=== PATIENT | female | born 1980 | race Hispanic/Latino ===

== ENCOUNTER 2016-11-19 15:26 | Inpatient (IN) | payer MEDICARE, OTHER ==
[2016-11-19 15:27] VITALS: BMI 24.9
[2016-11-19] MEDS ORDERED: Albuterol-Ipratrop 3 mg / 0.5 (3 ml) UD ONE ×2 (15:35→20:38)
[2016-11-19 15:52] LABS: BASO # 0.1 K/uL (0.0-0.2); BASO % 0.5 % (0.0-2.0); EOS # 0.4 K/uL (0.0-0.7); EOS % 2.9 % (0.0-4.0); HEMATOCRIT 38.5 % (34.0-47.0); LYMPH # 3.5 K/uL (1.0-4.3); LYMPH % 24.2 % (20.0-40.0); MEAN CELL VOLUME 89.5 fL (81.0-99.0); MEAN CORPUSCULAR HEMOGLOBIN 29.2 pg (27.0-31.0); MEAN CORPUSCULAR HGB CONC 32.6 g/dL (33.0-37.0); MEAN PLATELET VOLUME 7.1 fL (7.2-11.7); MONO # 0.9 K/uL (0.0-0.8); MONO % 6.3 % (0.0-10.0); RED CELL DISTRIBUTION WIDTH 15.1 % (11.5-14.5); WHITE BLOOD COUNT 14.6 K/uL (4.8-10.8)
[2016-11-19] MEDS: Albuterol-Ipratrop 3 mg / 0.5 (3 ml) UD IH SCH ×3 (16:25→16:27)
[2016-11-19 16:55] LABS: CHLORIDE 101 mmol/L (98-107); SODIUM 137 mmol/L (132-148)
[2016-11-19 16:56] LABS: POTASSIUM 3.9 mmol/L (3.6-5.2)
[2016-11-19 16:58] LABS: ALB/GLOB RATIO 1.2 (1.0-2.1); ALKALINE PHOSPHATASE 82 U/L (38-126); AST/SGOT 14 U/L (14-36); BILIRUBIN,TOTAL < 0.1 mg/dL (0.2-1.3); BLOOD UREA NITROGEN 9 mg/dL (7-17); CARBON DIOXIDE 23 mmol/L (22-30); GFR AFRICAN-AMERICAN > 60; GLUCOSE,RANDOM 125 mg/dL (65-105); TOTAL PROTEIN 7.1 g/dL (6.3-8.3)
[2016-11-19 16:59] LABS: ALT/SGPT 18 U/L (9-52); CALCIUM 8.4 mg/dl (8.6-10.4)
--- NOTE | 2016-11-19 18:23 | RAD ---
PROCEDURE: CHEST RADIOGRAPH, 1 VIEW HISTORY: Shortness of breath COMPARISON: 02/14/2013 FINDINGS: LUNGS: Mild venous congestion. Patchy left basilar airspace opacity. Small nodular density in the right midlung may represent vessel on end. Upper lobe granulomatous changes. PLEURA: As above. CARDIOVASCULAR: Normal. OSSEOUS STRUCTURES: No significant abnormalities. VISUALIZED UPPER ABDOMEN: Normal. OTHER FINDINGS: None. IMPRESSION: Mild venous congestion. Patchy left basilar airspace opacity. Small nodular density in the right midlung may represent vessel on end. Upper lobe granulomatous changes.
--- NOTE | 2016-11-19 18:38 | C.PDOC ---
Time Seen by Provider: 11/19/16 15:33 Chief Complaint (Nursing): Respiratory Distress History Per: Patient Onset/Duration Of Symptoms: Days (1) Current Symptoms Are (Timing): Still Present Current Respiratory Medications: See Home Med List Severity: Severe Reports Recently: Hospitalized Additional History Per: Prior Records Past Medical History Reviewed: Historical Data, Nursing Documentation, Vital Signs Vital Signs: Last Vital Signs Temp 98.6 F 11/19/16 17:28 Pulse 84 11/19/16 17:28 Resp 20 11/19/16 17:28 BP 106/56 L 11/19/16 17:28 Pulse Ox 97 11/19/16 17:28 - Medical History PMH: Asthma (HX OF INTUBATIONS), Depression, Seizures - [facility] Procedures DETOXIFICATION SERVICES FOR SUBSTANCE ABUSE TREATMENT (12/03/15) DPT ADMINISTRATION (12/31/13) MANUAL ASSIST DELIV NEC (12/31/13) MEDS MGMT FOR SUBSTANCE ABUSE TREATMENT, ANTABUSE (12/03/15) OTHER SKIN & SUBQ I D (01/07/15) REPAIR OB LACERATION NEC (12/31/13) Family History: States: Unknown Family Hx - Social History Hx Tobacco Use: No (quit) Hx Alcohol Use: Yes Hx Substance Use: No (quit) - Immunization History Hx Tetanus Toxoid Vaccination: Yes Hx Influenza Vaccination: Yes Hx Pneumococcal Vaccination: Yes Review Of Systems Except As Marked, All Systems Reviewed And Found Negative. Constitutional: Negative for: Fever, Weakness Cardiovascular: Negative for: Chest Pain Respiratory: Positive for: Shortness of Breath. Negative for: Cough, Hemoptysis Gastrointestinal: Negative for: Vomiting, Abdominal Pain Musculoskeletal: Negative for: Neck Pain, Back Pain, Leg Pain Skin: Negative for: Rash Neurological: Negative for: Weakness, Numbness, Seizures, Altered Mental Status Physical Exam - Physical Exam Appears: In Acute Distress Skin: Normal Color, Warm, Dry, No Rash Head: Atraumatic, Normacephalic Eye(s): bilateral: PERRL, EOMI Neck: Normal ROM, Supple Cardiovascular: Rhythm Regular Respiratory: Wheezing Gastrointestinal/Abdominal: Soft, No Tenderness Back: No CVA Tenderness Extremity: Normal ROM, No Pedal Edema, No Calf Tenderness Neurological/Psych: Oriented x3, Normal Motor, Normal Sensation ED Course And Treatment - Laboratory Results Result Diagrams: 11/19/16 15:45 11/19/16 16:44 Urine POC: Negative O2 Sat by Pulse Oximetry: 97 Pulse Ox Interpretation: Normal - Radiology CXR: Viewed By Me, Read By Radiologist CXR Interpretation: Yes: Other (Mild venous congestion. Patchy left basilar airspace opacity. Small nodular density in the right midlung may represent vessel on end. Upper lobe granulomatous changes.) Progress Note: Pt is improving on Vapotherm high flow nasal canula. She is no longer in distress, but is still wheezing. Progress - Interventions Interventions:: Observation, Oxygen - Medications Administered Inhaled nebulized: Anticholinergic, Beta-2 agonist Intravenous: Corticosteroid, Other (Mg) - Data Reviewed Data Reviewed: Lab, Diagnostic imaging, Old records - Patient Status Patient status: Mostly improved - Critical Care Citical Care: Excluding Proc Time Critical Care Time: 45 minutes - Continuity of Care Discussed patient case with:: Patient, ED Nurse, PMD Disposition Discussed With Dr.: Alex Prescott Comment: He accepted pt on his service and gave admitting orders to the nurse. He wants to hold off on given antibiotics at this time. Doctor Will See Patient In The: Hospital Counseled Patient/Family Regarding: Studies Performed, Diagnosis - Disposition Disposition: HOSPITALIZED Disposition Time: 18:38 Condition: FAIR - Clinical Impression Clinical Impression: Asthma exacerbation Decision To Admit - Pt Status Changed To: Hospital Disposition Of: Inpatient - Admit Certification Admit to Inpatient:: After my assessment, the patient will require hospitalization for at least two midnights. This is because of the severity of symptoms shown, intensity of services needed, and/or the medical risk in this patient being treated as an outpatient. - InPatient: Physician Admission Certification: I certify that this patient requires 2 or more midnights of care for the following reason:: Pt is high risk as she has had multiple prior intubations. - . Bed Request Type: Regular Admitting Physician: Alex Prescott Patient Diagnosis: Asthma exacerbation
[2016-11-19] MEDS ORDERED: Albuterol-Ipratrop 3 mg / 0.5 (3 ml) UD INH SCH (18:45)
[2016-11-19] MEDS ORDERED: MethylPREDNISolone 40 mg Vial ONE (19:50)
[2016-11-19] MEDS: MethylPREDNISolone 40 mg Vial IVP SCH (19:51)
[2016-11-19] MEDS: Albuterol-Ipratrop 3 mg / 0.5 (3 ml) UD INH SCH (20:55)
[2016-11-20] MEDS ORDERED: MethylPREDNISolone 40 mg Vial ONE ×2 (00:22→05:39)
[2016-11-20] MEDS: MethylPREDNISolone 40 mg Vial IVP SCH ×4 (00:23→18:21)
[2016-11-20] MEDS: Albuterol-Ipratrop 3 mg / 0.5 (3 ml) UD INH SCH ×7 (03:18→19:50)
[2016-11-20] MEDS ORDERED: Albuterol-Ipratrop 3 mg / 0.5 (3 ml) UD ONE ×2 (09:17→12:08)
[2016-11-20] MEDS ORDERED: ROPINIROLE HCL 1 MG PO SCH (10:00)
[2016-11-20] MEDS ORDERED: Patient's Own Control Med PO SCH (10:00)
[2016-11-20] MEDS ORDERED: ROPINIROLE 1 MG PO SCH (10:30)
[2016-11-20] MEDS: ROPINIROLE HCL 1 MG PO SCH ×3 (11:30→18:20)
[2016-11-20 16:46] VITALS: RESP 20
--- NOTE | 2016-11-20 19:46 | CP.PCM.HP ---
History of Present Illness - History of Present Illness History of Present Illness: admitted with sob and wheezing h/o admission @ [facility] for resp. failure and pnuemonia found to have mrsa at that time h/o ARDS IN THE PAST WITH RESIDUAL LUNG SCARRING ASTHMA DRUG ABUSE IN THE PAST Present on Admission - Present on Admission Any Indicators Present on Admission: Yes Review of Systems - Respiratory Respiratory: Dyspnea, Dyspnea on Exertion, Wheezing Past Patient History - Infectious Disease Hx of Infectious Diseases: None, MRSA - Past Medical History & Family History Past Medical History?: No - Past Social History Smoking Status: Current Some Days Smoker Drugs: Cocaine, Opiates - PULMONARY Hx Asthma: Yes (HX OF INTUBATIONS) Hx Pneumonia: Yes Hx Respiratory Aspiration: Yes - NEUROLOGICAL Hx Seizures: Yes - MUSCULOSKELETAL/RHEUMATOLOGICAL Hx Falls: No - PSYCHIATRIC Hx Depression: Yes Hx Substance Use: No (quit) - SURGICAL HISTORY Hx Surgeries: No Hx Herniorrhaphy: Yes Other/Comment: etopic Sx - ANESTHESIA Hx Anesthesia: Yes Hx Anesthesia Reactions: No Hx Malignant Hyperthermia: No Meds Allergies/Adverse Reactions: Allergies Allergy/AdvReac Type Severity Reaction Status Date / Time pseudoephedrine HCl Allergy Verified 11/19/16 15:35 [From [facility]] Physical Exam - Constitutional Appears: Chronically Ill - Head Exam Head Exam: ATRAUMATIC, NORMOCEPHALIC - Eye Exam Eye Exam: Normal appearance - ENT Exam ENT Exam: Mucous Membranes Moist - Neck Exam Neck exam: Positive for: Normal Inspection - Respiratory Exam Respiratory Exam: Decreased Breath Sounds, Prolonged Expiratory Phase, Wheezes - Cardiovascular Exam Cardiovascular Exam: +S1, +S2 - GI/Abdominal Exam GI & Abdominal Exam: Normal Bowel Sounds - Rectal Exam Rectal Exam: Deferred - Extremities Exam Extremities exam: Positive for: normal inspection - Neurological Exam Neurological exam: Alert, Oriented x3 - Psychiatric Exam Psychiatric exam: Normal Affect, Normal Mood - Skin Skin Exam: Intact Results - Vital Signs Recent Vital Signs: Last Vital Signs Temp 97.8 F 11/20/16 16:41 Pulse 60 11/20/16 16:41 Resp 20 11/20/16 16:41 BP 98/57 L 11/20/16 16:41 Pulse Ox 95 11/20/16 16:41 - Labs Result Diagrams: 11/19/16 15:45 11/19/16 16:44 Assessment & Plan (1) Asthma exacerbation Status: Acute (2) Opiate dependence Status: Resolved (3) Anoxic brain damage syndrome Status: Chronic (4) MRSA (methicillin resistant Staphylococcus aureus) carrier Status: Suspected
[2016-11-21] MEDS: MethylPREDNISolone 40 mg Vial IVP SCH ×4 (00:14→18:20)
[2016-11-21] MEDS: Ceftaroline 600 MG in Sodium Chloride 0.9% 100 ML IVPB SCH ×2 (00:14→10:55)
[2016-11-21] MEDS: Albuterol-Ipratrop 3 mg / 0.5 (3 ml) UD INH SCH ×7 (00:29→23:39)
[2016-11-21 08:11] LABS: BASO % 0.3 % (0.0-2.0); HEMATOCRIT 33.4 % (34.0-47.0); LYMPH # 1.4 K/uL (1.0-4.3); LYMPH % 9.1 % (20.0-40.0); MEAN CORPUSCULAR HEMOGLOBIN 28.7 pg (27.0-31.0); MEAN CORPUSCULAR HGB CONC 31.5 g/dL (33.0-37.0); MEAN PLATELET VOLUME 8.2 fL (7.2-11.7); MONO # 0.4 K/uL (0.0-0.8); MONO % 2.4 % (0.0-10.0); RED CELL DISTRIBUTION WIDTH 15.2 % (11.5-14.5); WHITE BLOOD COUNT 15.6 K/uL (4.8-10.8)
[2016-11-21 08:15] LABS: PLATELET COUNT 337 K/uL (130-400)
[2016-11-21 08:31] LABS: CHLORIDE 102 mmol/L (98-107); POTASSIUM 4.7 mmol/L (3.6-5.2); SODIUM 140 mmol/L (132-148)
[2016-11-21 08:33] LABS: BILIRUBIN,TOTAL < 0.1 mg/dL (0.2-1.3); CARBON DIOXIDE 23 mmol/L (22-30); GFR AFRICAN-AMERICAN > 60
[2016-11-21 08:34] LABS: ALB/GLOB RATIO 1.3 (1.0-2.1); ALKALINE PHOSPHATASE 69 U/L (38-126); ALT/SGPT 6 U/L (9-52); AST/SGOT 20 U/L (14-36); BLOOD UREA NITROGEN 16 mg/dL (7-17); CALCIUM 8.5 mg/dl (8.6-10.4); GLUCOSE,RANDOM 127 mg/dL (65-105); TOTAL PROTEIN 6.7 g/dL (6.3-8.3)
[2016-11-21 09:26] LABS: NEUTROPHIL 87 % (50-75); TOTAL CELLS COUNTED 100
[2016-11-21] MEDS: ROPINIROLE HCL 1 MG PO SCH ×3 (10:54→17:22)
--- NOTE | 2016-11-21 11:46 | CT ---
CT chest without IV contrast Indication: Abnormal chest x-ray Technique: Contiguous axial images were obtained through the chest without intravenous contrast enhancement. Sagittal and coronal reconstructions were generated and reviewed. This CT exam was performed using 1 or more of the falling dose reduction techniques: Automated exposure control, adjustment of the MAA and/or kV according to patient size, and/or use of iterative reconstruction technique. Radiation dose (DLP): 180.71 MGy-cm. Comparison: Chest x-ray performed 11/19/16 Findings: Visualized portions of the inferior thyroid gland appear unremarkable. The noncontrast mediastinal and hilar vascular structures appear grossly unremarkable. The heart appears within normal limits of size. Patchy ground-glass pulmonary opacities are noted bilaterally with upper lobe predominance, nonspecific. Right middle lobe atelectasis. No pleural effusion. No pneumothorax. Small hiatal hernia/distal esophageal wall thickening. Limited visualization of the noncontrast upper abdomen appears grossly unremarkable. No acute osseous abnormality is detected. Impression: Nonspecific patchy ground-glass pulmonary opacities bilaterally with upper lobe predominance; infectious or inflammatory etiologies are favored. Recommend clinical correlation and follow-up upon completion of treatment for acute symptoms in order to ensure complete resolution. Right middle lobe streaky atelectasis. Preliminary impression was provided by virtual radiologic. Study has been marked for PA review.
--- NOTE | 2016-11-21 17:04 | CP.PCM.PN ---
Subjective - Date & Time of Evaluation Date of Evaluation: 11/21/16 Time of Evaluation: 17:01 - Subjective Subjective: feels much better, wants to go home Objective - Vital Signs/Intake and Output Vital Signs (last 24 hours): Temp Pulse Resp BP Pulse Ox 98.3 F 58 L 20 112/63 96 11/21/16 16:00 11/21/16 16:00 11/21/16 16:00 11/21/16 16:00 11/21/16 16:00 Intake and Output: 11/21/16 11/21/16 06:59 18:59 Intake Total 350 600 Balance 350 600 - Medications Medications: Current Medications Albuterol/Ipratropium (Duoneb 3 Mg/0.5 Mg (3 Ml) Ud) 3 ml INH RQ4 [facility] Last Admin: 11/21/16 12:26 Dose: Not Given Fluoxetine HCl (Prozac) 20 mg PO DAILY [facility] Last Admin: 11/21/16 10:53 Dose: 20 mg Gabapentin (Neurontin) 400 mg PO TID [facility] Last Admin: 11/21/16 14:16 Dose: 400 mg Home Med (Patient's Own Medication) 1 tab PO TID [facility] Last Admin: 11/21/16 14:20 Dose: 1 tab Ceftaroline Fosamil 600 mg/ (Sodium Chloride) 100 mls @ 100 mls/hr IVPB Q12H [facility] Last Admin: 11/21/16 10:55 Dose: 100 mls/hr Methylprednisolone (Solu-Medrol) 40 mg IVP Q6H [facility] Last Admin: 11/21/16 13:16 Dose: 40 mg Mirtazapine (Remeron) 30 mg PO HS [facility] Last Admin: 11/20/16 21:24 Dose: 30 mg Montelukast Sodium (Singulair) 10 mg PO HS [facility] Last Admin: 11/20/16 21:24 Dose: 10 mg Trazodone HCl (Desyrel) 50 mg PO HS PRN PRN Reason: Insomnia Last Admin: 11/19/16 21:55 Dose: 50 mg - Labs Labs: 11/21/16 07:57 11/21/16 07:57 PT 11.1 SECONDS (9.7-12.2) 11/19/16 15:45 INR 1.0 11/19/16 15:45 APTT 35 SECONDS (21-34) H 11/19/16 15:45 - Constitutional Appears: No Acute Distress - Head Exam Head Exam: ATRAUMATIC, NORMOCEPHALIC - Eye Exam Eye Exam: Normal appearance - ENT Exam ENT Exam: Mucous Membranes Moist - Respiratory Exam Respiratory Exam: Decreased Breath Sounds - Cardiovascular Exam Cardiovascular Exam: +S1, +S2 - GI/Abdominal Exam GI & Abdominal Exam: Normal Bowel Sounds - Rectal Exam Rectal Exam: Deferred - Neurological Exam Neurological Exam: Alert, Awake, Oriented x3 - Psychiatric Exam Psychiatric exam: Normal Affect, Normal Mood - Skin Skin Exam: Intact Assessment and Plan (1) Asthma exacerbation Status: Acute (2) Opiate dependence Status: Resolved (3) Anoxic brain damage syndrome Status: Chronic (4) MRSA (methicillin resistant Staphylococcus aureus) carrier Status: Suspected
--- NOTE | 2016-11-21 20:21 | CP.PCM.CON ---
History of Present Illness - History of Present Illness History of Present Illness: INFECTIOUS DISEASE CONSULTATION SHELTON LEW MD, FACP 3T 366 11/21/2016 CHART REVIEWED PT EXAMINED CASED DISCUSSED WITH PMD DR SAGAR GIVENS hX SOMEWHAT LIMITED FROM PATIENT admitted with sob and wheezing from the ER/ED h/o admission @ [facility] for resp. failure and pnuemonia, recently discharged about 6-8 weeks ago with Respiratoy disfunction. found to have mrsa at that time, exact location to be elucidated h/o ARDS IN THE PAST WITH RESIDUAL LUNG SCARRING ASTHMA DRUG ABUSE IN THE PAST TRAUMA AN INFECTIOUS DISEASE CONSULTATION WAS REQUESTED SECONDARY HER SIGNIFICANTLY COMPLICATED RESPIRATORY MEDICAL HISTORY AND MRSA HISTORY. Review of Systems - Review of Systems Systems not reviewed;Unavailable: Respiratory Distress - Constitutional Constitutional: Fatigue, Malaise. absent: Chills, Fever - EENT Nose/Mouth/Throat: Post Nasal Drip, Dry Mouth, Hoarsness - Cardiovascular Cardiovascular: Dyspnea on Exertion, Lightheadedness, Rapid Heart Rate - Respiratory Respiratory: Dyspnea on Exertion, Wheezing, Chest Congestion, Change in Mucous Color - Gastrointestinal Gastrointestinal: Early Satiety, Excessive Flatus - Musculoskeletal Musculoskeletal: Stiffness - Neurological Neurological: Abnormal Speech, Memory Loss, Weakness - Psychiatric Psychiatric: Anxiety, Confusion, Irritability Past Patient History - Infectious Disease Hx of Infectious Diseases: None, MRSA - Tetanus Immunizations Tetanus Immunization: Unknown - Past Medical History & Family History Past Medical History?: No - Past Social History Smoking Status: Current Some Days Smoker Drugs: Cocaine, Opiates - PULMONARY Hx Respiratory Disorders: Yes Hx Asthma: Yes (HX OF INTUBATIONS) Hx Bronchitis: Yes Hx Pneumonia: Yes Hx Respiratory Aspiration: Yes Hx Respiratory Tract Infection: Yes - NEUROLOGICAL Hx Neurological Disorder: Yes Hx Seizures: Yes Other/Comment: ANOXIC ENCEPHALOPATHY - MUSCULOSKELETAL/RHEUMATOLOGICAL Hx Musculoskeletal Disorders: Yes Hx Falls: No Other/Comment: TRAUMA PREVIOUSLY - PSYCHIATRIC Hx Psychophysiologic Disorder: Yes Hx Anxiety: Yes Hx Depression: Yes Hx Substance Use: No (quit(?)) - SURGICAL HISTORY Hx Surgeries: No Hx Herniorrhaphy: Yes Other/Comment: etopic Sx - ANESTHESIA Hx Anesthesia: Yes Hx Anesthesia Reactions: No Hx Malignant Hyperthermia: No Meds Home Medications: Home Medication List Medication Instructions Recorded Confirmed Type Methylprednisolone [Medrol Dose 4 mg PO 5XD #21 mg 11/21/16 Rx Pack (21 tabs)] Allergies/Adverse Reactions: Allergies Allergy/AdvReac Type Severity Reaction Status Date / Time pseudoephedrine HCl Allergy Verified 11/19/16 15:35 [facility] - Medications Medications: Current Medications Albuterol/Ipratropium (Duoneb 3 Mg/0.5 Mg (3 Ml) Ud) 3 ml INH RQ4 [facility] Last Admin: 11/21/16 19:47 Dose: 3 ml Fluoxetine HCl (Prozac) 20 mg PO DAILY [facility] Last Admin: 11/21/16 10:53 Dose: 20 mg Gabapentin (Neurontin) 400 mg PO TID [facility] Last Admin: 11/21/16 17:19 Dose: 400 mg Home Med (Patient's Own Medication) 1 tab PO TID [facility] Last Admin: 11/21/16 17:22 Dose: 1 tab Ceftaroline Fosamil 600 mg/ (Sodium Chloride) 100 mls @ 100 mls/hr IVPB Q12H [facility] Last Admin: 11/21/16 10:55 Dose: 100 mls/hr Methylprednisolone (Solu-Medrol) 40 mg IVP Q6H [facility] Last Admin: 11/21/16 13:16 Dose: 40 mg Mirtazapine (Remeron) 30 mg PO HS [facility] Last Admin: 11/20/16 21:24 Dose: 30 mg Montelukast Sodium (Singulair) 10 mg PO HS [facility] Last Admin: 11/20/16 21:24 Dose: 10 mg Trazodone HCl (Desyrel) 50 mg PO HS PRN PRN Reason: Insomnia Last Admin: 11/19/16 21:55 Dose: 50 mg Physical Exam - Constitutional Appears: Non-toxic, Older Than Stated Age, Chronically Ill - Head Exam Head Exam: ATRAUMATIC - Eye Exam Eye Exam: Normal appearance - ENT Exam ENT Exam: Mucous Membranes Moist - Neck Exam Neck exam: Positive for: Normal Inspection - Respiratory Exam Respiratory Exam: Decreased Breath Sounds, NORMAL BREATHING PATTERN. absent: Wheezes - Cardiovascular Exam Cardiovascular Exam: REGULAR RHYTHM - GI/Abdominal Exam GI & Abdominal Exam: Diminished Bowel Sounds, Normal Bowel Sounds, Soft. absent : Tenderness - Rectal Exam Rectal Exam: Deferred - Neurological Exam Neurological exam: Alert - Psychiatric Exam Psychiatric exam: Anxious, Flat Affect - Skin Skin Exam: Warm Results - Vital Signs Recent Vital Signs: Last Vital Signs Temp 98.3 F 11/21/16 16:00 Pulse 58 L 11/21/16 16:00 Resp 20 11/21/16 16:00 BP 112/63 11/21/16 16:00 Pulse Ox 96 11/21/16 16:00 - Labs Result Diagrams: 11/21/16 07:57 11/21/16 07:57 Labs: Laboratory Results - last 24 hr 11/21/16 07:57 WBC 15.6 H RBC 3.67 L Hgb 10.5 L D Hct 33.4 L MCV 91.0 MCH 28.7 MCHC 31.5 L RDW 15.2 H Plt Count 337 D MPV 8.2 Neut % (Auto) 88.2 H Lymph % (Auto) 9.1 L Upson % (Auto) 2.4 Eos % (Auto) 0.0 Baso % (Auto) 0.3 Neut # 13.7 H Lymph # 1.4 Upson # 0.4 Eos # 0.0 Baso # 0.0 Neutrophils % (Manual) 87 H Band Neutrophils % 2 Lymphocytes % (Manual) 8 L Monocytes % (Manual) 3 Platelet Estimate Normal Hypochromasia (manual) Slight Poikilocytosis (manual Slight Anisocytosis (manual) Slight Ovalocytes Slight Sodium 140 Potassium 4.7 Chloride 102 Carbon Dioxide 23 Anion Gap 19 BUN 16 Creatinine 0.5 L Est GFR ( Amer) > 60 Est GFR (Non-Af Amer) > 60 Random Glucose 127 H Calcium 8.5 L Total Bilirubin < 0.1 L AST 20 ALT 6 L D Alkaline Phosphatase 69 Total Protein 6.7 Albumin 3.8 Globulin 2.9 Albumin/Globulin Ratio 1.3 Assessment & Plan (1) Asthma exacerbation Status: Acute Comment: STEROIDS AND TEFLARO (2) MRSA (methicillin resistant Staphylococcus aureus) carrier Status: Suspected Comment: C/S AND TEFLARO (3) Anoxic brain damage syndrome Status: Chronic (4) Pneumonia Status: Suspected Comment: TEFLARO
[2016-11-22] MEDS: Ceftaroline 600 MG in Sodium Chloride 0.9% 100 ML IVPB SCH ×2 (00:25→12:03)
[2016-11-22] MEDS: MethylPREDNISolone 40 mg Vial IVP SCH ×3 (00:26→13:39)
[2016-11-22] MEDS: Albuterol-Ipratrop 3 mg / 0.5 (3 ml) UD INH SCH ×3 (03:03→11:17)
[2016-11-22 07:17] VITALS: BP 138/76; PULSE 64; TEMP 97.9; O2SAT 96
[2016-11-22] MEDS: ROPINIROLE HCL 1 MG PO SCH (11:00)
--- NOTE | 2016-12-05 17:46 | CP.PCM.DIS ---
Provider - Provider Date of Admission: 11/19/16 18:35 Attending physician: Alex Prescott MD Time Spent in preparation of Discharge (in minutes): 25 Diagnosis - Discharge Diagnosis (1) Opiate dependence Status: Resolved (2) Asthma exacerbation Status: Acute (3) Anoxic brain damage syndrome Status: Chronic Hospital Course - Lab Results Lab Results: Micro Results 11/20/16 22:00 Naris Gram Stain - Final 11/20/16 22:00 Naris Nose Culture - Final NORMAL SAPROPHYTIC PANKAJ 11/20/16 22:00 Nose MRSA Culture - Final MRSA NOT DETECTED 11/20/16 07:16 Nose MRSA Culture (Admit) - Final MRSA NOT DETECTED Most Recent Lab Values WBC 15.6 K/uL (4.8-10.8) H 11/21/16 07:57 RBC 3.67 Mil/uL (3.80-5.20) L 11/21/16 07:57 Hgb 10.5 g/dL (11.0-16.0) L D 11/21/16 07:57 Hct 33.4 % (34.0-47.0) L 11/21/16 07:57 MCV 91.0 fL (81.0-99.0) 11/21/16 07:57 MCH 28.7 pg (27.0-31.0) 11/21/16 07:57 MCHC 31.5 g/dL (33.0-37.0) L 11/21/16 07:57 RDW 15.2 % (11.5-14.5) H 11/21/16 07:57 Plt Count 337 K/uL (130-400) D 11/21/16 07:57 MPV 8.2 fL (7.2-11.7) 11/21/16 07:57 Neut % (Auto) 88.2 % (50.0-75.0) H 11/21/16 07:57 Lymph % (Auto) 9.1 % (20.0-40.0) L 11/21/16 07:57 Mcdonald % (Auto) 2.4 % (0.0-10.0) 11/21/16 07:57 Eos % (Auto) 0.0 % (0.0-4.0) 11/21/16 07:57 Baso % (Auto) 0.3 % (0.0-2.0) 11/21/16 07:57 Neut # 13.7 K/uL (1.8-7.0) H 11/21/16 07:57 Lymph # 1.4 K/uL (1.0-4.3) 11/21/16 07:57 Mcdonald # 0.4 K/uL (0.0-0.8) 11/21/16 07:57 Eos # 0.0 K/uL (0.0-0.7) 11/21/16 07:57 Baso # 0.0 K/uL (0.0-0.2) 11/21/16 07:57 Neutrophils % (Manual) 87 % (50-75) H 11/21/16 07:57 Band Neutrophils % 2 % (0-2) 11/21/16 07:57 Lymphocytes % (Manual) 8 % (20-40) L 11/21/16 07:57 Monocytes % (Manual) 3 % (0-10) 11/21/16 07:57 Platelet Estimate Normal (NORMAL) 11/21/16 07:57 Hypochromasia (manual) Slight 11/21/16 07:57 Poikilocytosis (manual Slight 11/21/16 07:57 Anisocytosis (manual) Slight 11/21/16 07:57 Ovalocytes Slight 11/21/16 07:57 PT 11.1 SECONDS (9.7-12.2) 11/19/16 15:45 INR 1.0 11/19/16 15:45 APTT 35 SECONDS (21-34) H 11/19/16 15:45 Sodium 140 mmol/L (132-148) 11/21/16 07:57 Potassium 4.7 mmol/L (3.6-5.2) 11/21/16 07:57 Chloride 102 mmol/L (98-107) 11/21/16 07:57 Carbon Dioxide 23 mmol/L (22-30) 11/21/16 07:57 Anion Gap 19 (10-20) 11/21/16 07:57 BUN 16 mg/dL (7-17) 11/21/16 07:57 Creatinine 0.5 MG/DL (0.7-1.2) L 11/21/16 07:57 Est GFR ( Amer) > 60 11/21/16 07:57 Est GFR (Non-Af Amer) > 60 11/21/16 07:57 Random Glucose 127 mg/dL (65-105) H 11/21/16 07:57 Calcium 8.5 mg/dl (8.6-10.4) L 11/21/16 07:57 Total Bilirubin < 0.1 mg/dL (0.2-1.3) L 11/21/16 07:57 AST 20 U/L (14-36) 11/21/16 07:57 ALT 6 U/L (9-52) L D 11/21/16 07:57 Alkaline Phosphatase 69 U/L (38-126) 11/21/16 07:57 Troponin I < 0.0120 ng/mL (0.00-0.120) 11/19/16 16:44 NT-Pro-B Natriuret Pep 79.3 pg/mL (0-450) 11/19/16 16:44 Total Protein 6.7 g/dL (6.3-8.3) 11/21/16 07:57 Albumin 3.8 g/dL (3.5-5.0) 11/21/16 07:57 Globulin 2.9 gm/dL (2.2-3.9) 11/21/16 07:57 Albumin/Globulin Ratio 1.3 (1.0-2.1) 11/21/16 07:57 Urine HCG, Qual Negative (NEGATIVE) 11/19/16 17:48 Urine Opiates Screen Negative (NEGATIVE) 11/19/16 17:48 Urine Methadone Screen Negative (NEGATIVE) 11/19/16 17:48 Ur Barbiturates Screen Negative (NEGATIVE) 11/19/16 17:48 Ur Phencyclidine Scrn Negative (NEGATIVE) 11/19/16 17:48 Ur Amphetamines Screen Negative (NEGATIVE) 11/19/16 17:48 U Benzodiazepines Scrn Negative (NEGATIVE) 11/19/16 17:48 U Oth Cocaine Metabols Negative (NEGATIVE) 11/19/16 17:48 U Cannabinoids Screen Negative (NEGATIVE) 11/19/16 17:48 Discharge Exam - Head Exam Head Exam: ATRAUMATIC, NORMOCEPHALIC - Eye Exam Eye Exam: Normal appearance - ENT Exam ENT Exam: Mucous Membranes Moist - Neck Exam Neck exam: Normal Inspection - Respiratory Exam Respiratory Exam: Decreased Breath Sounds - Cardiovascular Exam Cardiovascular Exam: +S1, +S2 - GI/Abdominal Exam GI & Abdominal Exam: Normal Bowel Sounds - Rectal Exam Rectal Exam: Deferred - Neurological Exam Neurological exam: Alert, Oriented x3 - Psychiatric Exam Psychiatric exam: Normal Affect, Normal Mood - Skin Skin Exam: Intact Discharge Plan - Discharge Medications Prescriptions: Methylprednisolone [Medrol Dose Pack (21 tabs)] 4 mg PO 5XD #21 mg - Follow Up Plan Condition: FAIR Disposition: HOME/ ROUTINE Instructions: Methylprednisolone (By mouth), Asthma (DC), How Your Lungs Work ( DC) Referrals: Alex Prescott MD [Staff Provider] -
== END 2016-11-22 13:55 | disposition home or self-care (01) | DRG 202 ==
LOC: C.ER 15:26 → C.9E 18:35 → C.3T 20:37 → C.9E 21:05 → C.3T 11-20 12:56
PROVIDERS: ADMIT Internal Medicine Pulmonary Disease; ATTEND Internal Medicine Pulmonary Disease
DX: J45.901 Unspecified asthma with (acute) exacerbation (principal); J18.9 Pneumonia, unspecified organism; G93.1 Anoxic brain damage, not elsewhere classified; F11.20 Opioid dependence, uncomplicated; F17.210 Nicotine dependence, cigarettes, uncomplicated; Z22.322 Carrier or suspected carrier of Methicillin resistant Staphylococcus aureus; G47.00 Insomnia, unspecified

== ENCOUNTER 2017-09-13 12:23 | Inpatient (IN) | payer MEDICARE ==
[2017-09-13 12:23] VITALS: BMI 24.9
[2017-09-13] MEDS ORDERED: Albuterol-Ipratrop 3 mg / 0.5 (3 ml) UD ONE ×4 (12:46→21:30)
[2017-09-13] MEDS ORDERED: Sodium Chloride 0.9% 1,000 ML IV ONE (13:10)
--- NOTE | 2017-09-13 13:13 | C.PDOC ---
History Of Present Illness 36-YEAR-OLD FEMALE, PRESENTS TO THE EMERGENCY DEPARTMENT WITH COMPLAINTS OF WORSENING L SIDED CP X 2 WEEKS, ASTHMA EXAC X SEV DAYS. PS HO SEPTIC EMBOLI 2016, "THEY DID A SURGERY TO TAKE IT OUT" @ [facility]. PS HAS HAD NO CP UNTIL NOW. NO FEVER, LAMAR. +ASTHMA EXAC, NO IMPROVE W ROUTINE ASTHMA MEDS. PLEURITIC PAIN EXAM MOD DIST NONTOXIC HEENT NEG LUNGS CTA BL GEN EXP WHEEZE W RETRACTION CV RRR SINUS TACH NO LEG SWELL, EDEMA, NONTEND REMAINDE RNEG Time Seen by Provider: 09/13/17 12:41 Chief Complaint (Nursing): Chest Pain History Per: Patient History/Exam Limitations: no limitations Onset/Duration Of Symptoms: Days Current Symptoms Are (Timing): Still Present Severity: Moderate Past Medical History Reviewed: Historical Data, Nursing Documentation, Vital Signs Vital Signs: Last Vital Signs Temp 98.3 F 09/13/17 12:32 Pulse 82 09/13/17 16:15 Resp 18 09/13/17 16:15 BP 116/65 09/13/17 16:15 Pulse Ox 96 09/13/17 16:15 - Medical History PMH: Anxiety, Asthma (HX OF INTUBATIONS), Bronchitis, Depression, Pneumonia, Seizures - [facility] Procedures DETOXIFICATION SERVICES FOR SUBSTANCE ABUSE TREATMENT (12/03/15) DPT ADMINISTRATION (12/31/13) MANUAL ASSIST DELIV NEC (12/31/13) MEDS MGMT FOR SUBSTANCE ABUSE TREATMENT, ANTABUSE (12/03/15) OTHER SKIN & SUBQ I D (01/07/15) REPAIR OB LACERATION NEC (12/31/13) Family History: States: No Known Family Hx - Social History Hx Tobacco Use: No (quit) Hx Alcohol Use: No Hx Substance Use: No (quit(?)) - Immunization History Hx Tetanus Toxoid Vaccination: Yes Hx Influenza Vaccination: Yes Hx Pneumococcal Vaccination: Yes Review Of Systems Except As Marked, All Systems Reviewed And Found Negative. Constitutional: Negative for: Fever, Chills Cardiovascular: Positive for: Chest Pain Respiratory: Positive for: Shortness of Breath, Wheezing Gastrointestinal: Negative for: Nausea, Vomiting Musculoskeletal: Negative for: Back Pain Neurological: Negative for: Weakness, Numbness, Headache, Dizziness Physical Exam - Physical Exam Appears: Non-toxic, No Acute Distress (MOD DISTRESS) Skin: Warm, Dry, No Rash Head: Atraumatic Nose: Normal Oral Mucosa: Moist Lips: Normal Appearing Neck: Normal ROM Chest: Symmetrical Cardiovascular: Rhythm Regular, No Murmur Respiratory: No Accessory Muscle Use, Other (CTA BL GEN EXP WHEEZE W RETRACTION) Extremity: No Tenderness, No Pedal Edema Neurological/Psych: Oriented x3, Normal Speech ED Course And Treatment - Laboratory Results Result Diagrams: 09/13/17 13:27 09/13/17 13:27 ECG: Interpreted By Me ECG Rhythm: Sinus Tachycardia ECG Interpretation: Abnormal Rate From EC O2 Sat by Pulse Oximetry: 96 Pulse Ox Interpretation: Normal - Radiology CXR: Interpreted by Me CXR Interpretation: Yes: No Acute Disease Progress - Re-Evaluation Re-evaluation Note: 09/13/17 16:35 RESIDUAL CP IMPROVED FROM INITIAL. 96% ON 3L. CT RESULTS REVIEWED. PMD DR REGAN, PULSuzi GIVENS D/W DR RAMEY C/F DR Gen PRUETT C/F DR REGAN WILL ADMIT - Data Reviewed Data Reviewed: Lab, Diagnostic imaging, EKG, Old records - Continuity of Care Discussed patient case with:: Covering for PMD Disposition Counseled Patient/Family Regarding: Studies Performed, Diagnosis, Need For Followup - Disposition Disposition: HOSPITALIZED Disposition Time: 16:39 Condition: STABLE Forms: [facility] (Urdu) - POA Present On Arrival: None - Clinical Impression Clinical Impression: Chest pain, Asthma exacerbation, Pneumonia, Hypoxia - Scribe Statement The provider has reviewed the documentation as recorded by the Scribe (MONALISA MALIK) All medical record entries made by the Scribe were at my direction and personally dictated by me. I have reviewed the chart and agree that the record accurately reflects my personal performance of the history, physical exam, medical decision making, and the department course for this patient. I have also personally directed, reviewed, and agree with the discharge instructions and disposition. Decision To Admit - Pt Status Changed To: Hospital Disposition Of: Inpatient - Admit Certification Admit to Inpatient:: After my assessment, the patient will require hospitalization for at least two midnights. This is because of the severity of symptoms shown, intensity of services needed, and/or the medical risk in this patient being treated as an outpatient. - InPatient: Physician Admission Certification: I certify that this patient requires 2 or more midnights of care for the following reason:: SEE NOTE - . Bed Request Type: Regular Admitting Physician: Ray Ramey Patient Diagnosis: Chest pain, Asthma exacerbation, Pneumonia, Hypoxia
[2017-09-13] MEDS ORDERED: MethylPREDNISolone 40 mg Vial IVP STA (13:14)
[2017-09-13] MEDS: Albuterol-Ipratrop 3 mg / 0.5 (3 ml) UD IH SCH ×3 (13:15→13:45)
[2017-09-13] MEDS ORDERED: MethylPREDNISolone 40 mg Vial ONE (13:30)
[2017-09-13] MEDS ORDERED: Morphine 4 MG/ML VIAL ONE ×2 (13:30→22:05)
[2017-09-13] MEDS ORDERED: Sodium Chloride 0.9% 1,000 ML ONE (13:31)
[2017-09-13 13:37] LABS: BASO # 0.1 K/uL (0.0-0.2); BASO % 0.7 % (0.0-2.0); EOS # 0.4 K/uL (0.0-0.7); HEMOGLOBIN 11.7 g/dL (11.0-16.0); LYMPH # 1.3 K/uL (1.0-4.3); LYMPH % 17.1 % (20.0-40.0); MEAN CELL VOLUME 88.5 fL (81.0-99.0); MEAN CORPUSCULAR HEMOGLOBIN 30.6 pg (27.0-31.0); MEAN CORPUSCULAR HGB CONC 34.5 g/dL (33.0-37.0); MEAN PLATELET VOLUME 7.6 fL (7.2-11.7); MONO # 0.7 K/uL (0.0-0.8); MONO % 9.9 % (0.0-10.0); NEUT # 5.1 K/uL (1.8-7.0); NEUT % 67.3 % (50.0-75.0); RBC 3.83 Mil/uL (3.80-5.20); RED CELL DISTRIBUTION WIDTH 13.8 % (11.5-14.5); WHITE BLOOD COUNT 7.5 K/uL (4.8-10.8)
[2017-09-13 13:44] LABS: ALB/GLOB RATIO 1.2 (1.0-2.1); ALBUMIN 4.1 g/dL (3.5-5.0); ALT/SGPT 24 U/L (9-52); AST/SGOT 17 U/L (14-36); BLOOD UREA NITROGEN 6 mg/dL (7-17); CALCIUM 9.1 mg/dl (8.6-10.4); GFR AFRICAN-AMERICAN > 60; GFR NON-AFRICAN AMERICAN > 60
--- NOTE | 2017-09-13 13:51 | RAD ---
HISTORY: L chest pain HO SEPTIC EMBOLI COMPARISON: Chest x-ray performed 11/19/16 TECHNIQUE: Chest, one view. FINDINGS: LUNGS: Bilateral hilar prominence. Mild medial left lower lobe atelectasis. Please note that chest x-ray has limited sensitivity for the detection of pulmonary masses. PLEURA: No significant pleural effusion identified. No definite pneumothorax . CARDIOVASCULAR: Heart size appears within normal limits. OSSEOUS STRUCTURES: No acute osseous abnormality identified. VISUALIZED UPPER ABDOMEN: Unremarkable. OTHER FINDINGS: None. IMPRESSION: Bilateral hilar prominence. Mild medial left lower lobe atelectasis.
[2017-09-13 13:52] LABS: INR 1.1; PROTHROMBIN TIME 12.3 SECONDS (9.7-12.2)
[2017-09-13] MEDS ORDERED: Iodixanol 320 MG/ML 100 ML BOTTLE IV ONE (15:13)
--- NOTE | 2017-09-13 16:31 | CT ---
CTA chest PE protocol Indication: L chest pain HO SEPTIC EMBOLI Technique: Contiguous axial images were obtained through the chest with intravenous contrast enhancement. Sagittal and coronal reconstructions were generated and reviewed. This CT exam was performed using 1 or more of the following dose reduction techniques: Automated exposure control, adjustment of the MAA and/or kV according to patient size, and/or use of iterative reconstruction technique. IV Contrast: 100 mL Visipaque Radiation dose (DLP): 460.43 MGy-cm. Comparison: CT chest without contrast performed 11/20/16 Findings: Visualized portions of the inferior thyroid gland appear unremarkable. The mediastinal and hilar vascular structures appear within normal limits. The heart appears within normal limits of size. No large central or segmental pulmonary embolus evident. Geographic ground-glass and patchy infiltrates predominantly within the right greater than left upper and mid lung zones, to a lesser extent at the left lung base. No pleural effusion. No pneumothorax. No suspicious pulmonary nodules measuring greater than 5 mm. Limited visualized portions of the upper abdomen appear grossly unremarkable. Small hiatal hernia. No acute osseous abnormality is detected. Impression: No large central or segmental pulmonary embolus evident. Geographic ground-glass and patchy infiltrates predominantly within the right greater than left upper and mid lung zones, to a lesser extent at the left lung base. Infectious or inflammatory etiologies favored. Correlate clinically. Recommend short-term CT follow-up upon completion of treatment of acute symptoms in order to assess for resolution.
[2017-09-13] MEDS ORDERED: Azithromycin 500 MG in Sodium Chloride 0.9% 250 ML IV STA (16:41)
[2017-09-13] MEDS ORDERED: cefTRIAXone IV 1 gm in Dextros 50 ML IV ONE (16:41)
[2017-09-13] MEDS ORDERED: Albuterol-Ipratrop 3 mg / 0.5 (3 ml) UD INH STA (16:56)
[2017-09-13] MEDS ORDERED: cefTRIAXone IV 1 gm in Dextros 50 ML IVPB ONE (16:57)
--- NOTE | 2017-09-13 18:02 | CP.PCM.CON ---
History of Present Illness - History of Present Illness History of Present Illness: 2-3 day h/o cough and wheeze with discolored sputum and chest tightness, sob Review of Systems - Review of Systems All systems: reviewed and no additional remarkable complaints except - Respiratory Respiratory: Cough, Dyspnea on Exertion, Wheezing, Excessive Mucous Production, Pain with Coughing Past Patient History - Infectious Disease Hx of Infectious Diseases: None, MRSA - Tetanus Immunizations Tetanus Immunization: Unknown - Past Medical History & Family History Past Medical History?: No - Past Social History Smoking Status: Current Some Days Smoker - PULMONARY Hx Asthma: Yes (HX OF INTUBATIONS) Hx Bronchitis: Yes Hx Pneumonia: Yes - NEUROLOGICAL Hx Seizures: Yes - MUSCULOSKELETAL/RHEUMATOLOGICAL Hx Musculoskeletal Disorders: Yes Hx Falls: No Other/Comment: TRAUMA PREVIOUSLY - PSYCHIATRIC Hx Anxiety: Yes Hx Depression: Yes Hx Substance Use: No (quit(?)) - SURGICAL HISTORY Hx Surgeries: No Hx Herniorrhaphy: Yes Other/Comment: etopic Sx - ANESTHESIA Hx Anesthesia: Yes Hx Anesthesia Reactions: No Hx Malignant Hyperthermia: No Meds Allergies/Adverse Reactions: Allergies Allergy/AdvReac Type Severity Reaction Status Date / Time pseudoephedrine HCl Allergy Verified 09/13/17 12:31 [facility] Physical Exam - Constitutional Appears: No Acute Distress, Chronically Ill - Head Exam Head Exam: ATRAUMATIC, NORMOCEPHALIC - Eye Exam Eye Exam: Normal appearance - ENT Exam ENT Exam: Mucous Membranes Moist - Respiratory Exam Respiratory Exam: Decreased Breath Sounds, Prolonged Expiratory Phase, Wheezes - Cardiovascular Exam Cardiovascular Exam: REGULAR RHYTHM, +S1, +S2 - GI/Abdominal Exam GI & Abdominal Exam: Normal Bowel Sounds - Rectal Exam Rectal Exam: Deferred - Neurological Exam Neurological exam: Alert, Oriented x3 - Psychiatric Exam Psychiatric exam: Normal Affect, Normal Mood - Skin Skin Exam: Intact Results - Vital Signs Recent Vital Signs: Last Vital Signs Temp 98.3 F 09/13/17 12:32 Pulse 82 09/13/17 16:15 Resp 18 09/13/17 16:15 BP 116/65 09/13/17 16:15 Pulse Ox 96 09/13/17 16:40 - Labs Result Diagrams: 09/13/17 13:27 09/13/17 13:27 Labs: Laboratory Results - last 24 hr 02/01/18 02/01/18 02/01/18 13:27 13:27 13:27 WBC 7.5 D RBC 3.83 Hgb 11.7 Hct 33.9 L MCV 88.5 D MCH 30.6 MCHC 34.5 RDW 13.8 Plt Count 330 MPV 7.6 Neut % (Auto) 67.3 Lymph % (Auto) 17.1 L [place] % (Auto) 9.9 Eos % (Auto) 5.0 H Baso % (Auto) 0.7 Neut # (Auto) 5.1 Lymph # (Auto) 1.3 [place] # (Auto) 0.7 Eos # (Auto) 0.4 Baso # (Auto) 0.1 PT 12.3 H INR 1.1 APTT 35 H Sodium 137 Potassium 4.7 Chloride 99 Carbon Dioxide 28 Anion Gap 14 BUN 6 L Creatinine 0.6 L Est GFR ( Amer) > 60 Est GFR (Non-Af Amer) > 60 Random Glucose 109 H Calcium 9.1 Total Bilirubin 0.6 AST 17 ALT 24 Alkaline Phosphatase 79 Troponin I < 0.0120 Total Protein 7.4 Albumin 4.1 Globulin 3.3 Albumin/Globulin Ratio 1.2 Assessment & Plan (1) Asthma exacerbation Status: Acute (2) Pneumonia Status: Suspected Comment: ground glass opacities bilat (3) Anoxic brain damage syndrome Status: Chronic Comment: h/o resusscitation in the field for respiratory arrest related to asthma and drug abuse
--- NOTE | 2017-09-13 18:40 | CP.PCM.HP ---
Past Patient History - Infectious Disease Hx of Infectious Diseases: None, MRSA - Tetanus Immunizations Tetanus Immunization: Unknown - Past Medical History & Family History Past Medical History?: No - Past Social History Smoking Status: Current Some Days Smoker - PULMONARY Hx Asthma: Yes (HX OF INTUBATIONS) Hx Bronchitis: Yes Hx Pneumonia: Yes - NEUROLOGICAL Hx Seizures: Yes - MUSCULOSKELETAL/RHEUMATOLOGICAL Hx Musculoskeletal Disorders: Yes Hx Falls: No Other/Comment: TRAUMA PREVIOUSLY - PSYCHIATRIC Hx Anxiety: Yes Hx Depression: Yes Hx Substance Use: No (quit(?)) - SURGICAL HISTORY Hx Surgeries: No Hx Herniorrhaphy: Yes Other/Comment: etopic Sx - ANESTHESIA Hx Anesthesia: Yes Hx Anesthesia Reactions: No Hx Malignant Hyperthermia: No Meds Allergies/Adverse Reactions: Allergies Allergy/AdvReac Type Severity Reaction Status Date / Time pseudoephedrine HCl Allergy Verified 09/13/17 12:31 [From [facility]] Results - Vital Signs Recent Vital Signs: Last Vital Signs Temp 98.3 F 09/13/17 12:32 Pulse 82 09/13/17 16:15 Resp 18 09/13/17 16:15 BP 116/65 09/13/17 16:15 Pulse Ox 96 09/13/17 16:40 - Labs Result Diagrams: 09/13/17 13:27 09/13/17 13:27 Labs: Laboratory Results - last 24 hr 09/13/17 09/13/17 09/13/17 13:27 13:27 13:27 WBC 7.5 D RBC 3.83 Hgb 11.7 Hct 33.9 L MCV 88.5 D MCH 30.6 MCHC 34.5 RDW 13.8 Plt Count 330 MPV 7.6 Neut % (Auto) 67.3 Lymph % (Auto) 17.1 L [place] % (Auto) 9.9 Eos % (Auto) 5.0 H Baso % (Auto) 0.7 Neut # (Auto) 5.1 Lymph # (Auto) 1.3 [place] # (Auto) 0.7 Eos # (Auto) 0.4 Baso # (Auto) 0.1 PT 12.3 H INR 1.1 APTT 35 H Sodium 137 Potassium 4.7 Chloride 99 Carbon Dioxide 28 Anion Gap 14 BUN 6 L Creatinine 0.6 L Est GFR ( Amer) > 60 Est GFR (Non-Af Amer) > 60 Random Glucose 109 H Calcium 9.1 Total Bilirubin 0.6 AST 17 ALT 24 Alkaline Phosphatase 79 Troponin I < 0.0120 Total Protein 7.4 Albumin 4.1 Globulin 3.3 Albumin/Globulin Ratio 1.2
[2017-09-13] MEDS: Albuterol-Ipratrop 3 mg / 0.5 (3 ml) UD INH SCH (21:33)
[2017-09-13] MEDS: Fluticasone-Salmeterol 500-50mcg Diskus INH SCH (21:33)
[2017-09-13] MEDS ORDERED: Morphine 4 MG/ML VIAL IVP PRN (21:49)
[2017-09-14 01:43] VITALS: RESP 20
[2017-09-14] MEDS: Fluticasone-Salmeterol 500-50mcg Diskus INH SCH ×2 (07:46→19:26)
[2017-09-14] MEDS: Albuterol-Ipratrop 3 mg / 0.5 (3 ml) UD INH SCH ×4 (07:47→19:26)
[2017-09-14] MEDS: cefTRIAXone IV 1 gm in Dextros 50 ML IVPB SCH (10:22)
[2017-09-14] MEDS: Pantoprazole 40 mg EC Tab PO SCH (10:22)
[2017-09-14] MEDS: Enoxaparin 40 mg Syringe SC SCH (10:22)
[2017-09-14] MEDS: Azithromycin 500 MG in Sodium Chloride 0.9% 250 ML IVPB SCH (10:54)
--- NOTE | 2017-09-14 15:33 | CP.PCM.PN ---
Subjective - Date & Time of Evaluation Date of Evaluation: 09/14/17 Time of Evaluation: 15:33 Objective - Vital Signs/Intake and Output Vital Signs (last 24 hours): Temp Pulse Resp BP Pulse Ox 97.9 F 90 20 113/71 95 09/14/17 08:00 09/14/17 08:00 09/14/17 08:00 09/14/17 08:00 09/14/17 08:00 Intake and Output: 09/14/17 09/14/17 06:59 18:59 Intake Total 200 780 Balance 200 780 - Medications Medications: Current Medications Albuterol/Ipratropium (Duoneb 3 Mg/0.5 Mg (3 Ml) Ud) 3 ml INH RQ4 [facility] Last Admin: 09/14/17 11:49 Dose: 3 ml Enoxaparin Sodium (Lovenox) 40 mg SC DAILY [facility] Last Admin: 09/14/17 10:22 Dose: 40 mg Ceftriaxone Sodium (Rocephin Iv 1 Gm Duplex) 50 mls @ 100 mls/hr IVPB DAILY [facility] Last Admin: 09/14/17 10:22 Dose: 100 mls/hr Azithromycin 500 mg/ Sodium (Chloride) 250 mls @ 250 mls/hr IVPB DAILY [facility] Last Admin: 09/14/17 10:54 Dose: 250 mls/hr Methylprednisolone (Solu-Medrol) 125 mg IV Q12 [facility] Last Admin: 09/14/17 10:22 Dose: 125 mg Montelukast Sodium (Singulair) 10 mg PO HS [facility] Last Admin: 09/13/17 22:00 Dose: 10 mg Morphine Sulfate (Morphine) 2 mg IVP Q6 PRN PRN Reason: Pain, severe (8-10) Last Admin: 09/13/17 22:00 Dose: 2 mg Pantoprazole Sodium (Protonix Ec Tab) 40 mg PO DAILY [facility] Last Admin: 09/14/17 10:22 Dose: 40 mg Fluticasone/Salmeterol (Advair Diskus 500/50) 1 puff INH RQ12 [facility] Last Admin: 09/14/17 07:46 Dose: 1 puff - Labs Labs: 09/13/17 13:27 09/13/17 13:27 PT 12.3 SECONDS (9.7-12.2) H 09/13/17 13:27 INR 1.1 09/13/17 13:27 APTT 35 SECONDS (21-34) H 09/13/17 13:27
--- NOTE | 2017-09-14 19:21 | CARD ---
APPROVED REPORT EKG Measurement Heart [id number] ND [id number] [id number] <Conclusion> Sinus tachycardia Otherwise normal ECG
[2017-09-15] MEDS: Albuterol-Ipratrop 3 mg / 0.5 (3 ml) UD INH SCH ×5 (00:51→16:45)
[2017-09-15] MEDS: Fluticasone-Salmeterol 500-50mcg Diskus INH SCH (07:55)
[2017-09-15 09:35] VITALS: TEMP 98.1; O2SAT 97
[2017-09-15] MEDS: cefTRIAXone IV 1 gm in Dextros 50 ML IVPB SCH (10:30)
[2017-09-15] MEDS: Pantoprazole 40 mg EC Tab PO SCH (10:37)
[2017-09-15] MEDS: Enoxaparin 40 mg Syringe SC SCH (10:37)
[2017-09-15] MEDS: Azithromycin 500 MG in Sodium Chloride 0.9% 250 ML IVPB SCH (10:42)
[2017-09-15 16:59] VITALS: BP 145/77; PULSE 52
== END 2017-09-15 19:14 | disposition home or self-care (01) | DRG 194 ==
LOC: C.ER 12:23 → C.9E 16:40 → C.3T 22:18
PROVIDERS: ADMIT Internal Medicine Critical Care Medicine; ATTEND Internal Medicine Critical Care Medicine
DX: J18.9 Pneumonia, unspecified organism (principal); J45.901 Unspecified asthma with (acute) exacerbation; R56.9 Unspecified convulsions; R09.02 Hypoxemia; F17.200 Nicotine dependence, unspecified, uncomplicated

== ENCOUNTER 2018-05-03 12:43 | Emergency (ER) | payer MEDICARE, OTHER ==
[2018-05-03 12:44] VITALS: BMI 24.9
[2018-05-03 13:09] VITALS: BP 112/68; PULSE 73; RESP 18; TEMP 99.1; O2SAT 99
--- NOTE | 2018-05-03 14:15 | C.PDOC ---
History Of Present Illness 37-year-old female presents to the emergency department with complaints of "bumps" on her scalp. Patient denies any nausea/vomiting, fever, headache, itching, use of known allergens. Time Seen by Provider: 05/03/18 12:57 Chief Complaint (Nursing): Abnormal Skin Integrity History Per: Patient History/Exam Limitations: no limitations Current Symptoms Are (Timing): Still Present Quality Of Symptoms: Painful Severity: Mild Past Medical History Reviewed: Historical Data, Nursing Documentation, Vital Signs Vital Signs: Last Vital Signs Temp 99.1 F 05/03/18 13:06 Pulse 73 05/03/18 13:06 Resp 18 05/03/18 13:06 BP 112/68 05/03/18 13:06 Pulse Ox 99 05/03/18 14:26 - Medical History PMH: Anxiety, Asthma (HX OF INTUBATIONS), Bronchitis, Depression, Pneumonia, Seizures - [facility] Procedures DETOXIFICATION SERVICES FOR SUBSTANCE ABUSE TREATMENT (12/03/15) DPT ADMINISTRATION (12/31/13) MANUAL ASSIST DELIV NEC (12/31/13) MEDS MGMT FOR SUBSTANCE ABUSE TREATMENT, ANTABUSE (12/03/15) OTHER SKIN & SUBQ I D (01/07/15) REPAIR OB LACERATION NEC (12/31/13) Family History: States: No Known Family Hx - Social History Hx Tobacco Use: No (quit) Hx Alcohol Use: No Hx Substance Use: Yes - Immunization History Hx Tetanus Toxoid Vaccination: Yes Hx Influenza Vaccination: Yes Hx Pneumococcal Vaccination: Yes Review Of Systems Constitutional: Negative for: Fever, Chills ENT: Negative for: Nose Congestion, Throat Pain Gastrointestinal: Negative for: Nausea, Vomiting Skin: Positive for: Rash Neurological: Negative for: Headache, Dizziness Physical Exam - Physical Exam Appears: Well, Non-toxic, No Acute Distress Skin: Warm, Dry, No Rash, Other (multiple small pustules on scalp, surrounding erythema, no insects) Head: Atraumatic, Normacephalic Eye(s): bilateral: Normal Inspection Oral Mucosa: Moist Throat: Normal, No Erythema, No Exudate, No Drooling Cardiovascular: Rhythm Regular Respiratory: Normal Breath Sounds, No Rales, No Rhonchi, No Wheezing Extremity: Normal ROM Neurological/Psych: Oriented x3 ED Course And Treatment O2 Sat by Pulse Oximetry: 99 Pulse Ox Interpretation: Normal (RA) Progress Note: Rash has appearance of folliculitis - will treat patient with topical antibioitics. Rx for topical clindamycin given, and patient instructed to follow up with PMD/clinic in 1-2 days. She understands she should return to ED if symptoms worsen. Disposition Counseled Patient/Family Regarding: Studies Performed, Diagnosis, Need For Followup, Rx Given - Disposition Referrals: [facility] [Outside] Disposition: HOME/ ROUTINE Disposition Time: 13:30 Condition: STABLE Instructions: Folliculitis (DC) Forms: [employer] (Romansh) Print Language: FAROESE - Clinical Impression Clinical Impression: Folliculitis - Scribe Statement The provider has reviewed the documentation as recorded by the Scribe (Abelardo Castaneda) Provider Attestation: All medical record entries made by the Scribe were at my direction and personally dictated by me. I have reviewed the chart and agree that the record accurately reflects my personal performance of the history, physical exam, medical decision making, and the department course for this patient. I have also personally directed, reviewed, and agree with the discharge instructions and disposition.
== END 2018-05-03 13:35 | disposition home or self-care (01) ==
LOC: C.ER 12:43
DX: L73.9 Follicular disorder, unspecified (principal)

== ENCOUNTER 2018-05-12 20:53 | Emergency (ER) | payer MEDICARE, OTHER ==
[2018-05-12] MEDS ORDERED: Albuterol-Ipratrop 3 mg / 0.5 (3 ml) UD INH STA (21:00)
[2018-05-12 21:04] VITALS: TEMP 98.6; BMI 27.3
--- NOTE | 2018-05-12 21:25 | C.PDOC ---
History Of Present Illness 37yo female, with history of asthma, comes to ER reporting shortness of breath due to 2nd hand smoking exposure. Patient has been evaluated multiple times before with similar complaints. NO fever, chills, cough or chest pain. Time Seen by Provider: 05/12/18 20:58 Chief Complaint (Nursing): Respiratory Distress History Per: Patient History/Exam Limitations: no limitations Current Symptoms Are (Timing): Still Present Past Medical History Reviewed: Historical Data, Nursing Documentation, Vital Signs Vital Signs: Last Vital Signs Temp 98.6 F 05/12/18 20:59 Pulse 122 H 05/12/18 20:59 Resp 26 H 05/12/18 20:59 BP 123/72 05/12/18 20:59 Pulse Ox 92 L 05/12/18 20:59 - Medical History PMH: Anxiety, Asthma (HX OF INTUBATIONS), Bronchitis, Depression, Pneumonia, Seizures Denies: Chronic Kidney Disease Surgical History: No Surg Hx - [facility] Procedures DETOXIFICATION SERVICES FOR SUBSTANCE ABUSE TREATMENT (12/03/15) DPT ADMINISTRATION (12/31/13) MANUAL ASSIST DELIV NEC (12/31/13) MEDS MGMT FOR SUBSTANCE ABUSE TREATMENT, ANTABUSE (12/03/15) OTHER SKIN & SUBQ I D (01/07/15) REPAIR OB LACERATION NEC (12/31/13) Family History: States: No Known Family Hx - Social History Hx Tobacco Use: No (quit) Hx Alcohol Use: No Hx Substance Use: Yes - Immunization History Hx Tetanus Toxoid Vaccination: Yes Hx Influenza Vaccination: Yes Hx Pneumococcal Vaccination: Yes Review Of Systems Except As Marked, All Systems Reviewed And Found Negative. Constitutional: Negative for: Fever, Chills Cardiovascular: Negative for: Chest Pain Respiratory: Positive for: Shortness of Breath. Negative for: Cough Gastrointestinal: Negative for: Vomiting Physical Exam - Physical Exam Appears: Non-toxic Skin: Normal Color Eye(s): bilateral: Normal Inspection Oral Mucosa: Moist Neck: Normal ROM Chest: Symmetrical Cardiovascular: Rhythm Regular Respiratory: Rhonchi, Wheezing, Other (speaking complete sentences) Extremity: Normal ROM Neurological/Psych: Oriented x3 Additional Physical Exam Comments: Patient smells of cigarettes ED Course And Treatment O2 Sat by Pulse Oximetry: 92 (RA) Reevaluation Time: 22:35 Reassessment Condition: Improved (persistent scattered wheezing/rhonci, wants d/c home.) Critical Care Time - Critical Care Note Total Time (in mins): 45 Documented critical care: time excludes all time spent performing seperately billable procedures. Medical Decision Making Medical Decision Making: Plan: -- CXR -- Duoneb 6ml INH -- Prednisone 40mg PO -- Magnesium Sulfate 2gm IVPB Patient with hx of substance abuse including opiate abuse. Patient also with hx of chronic smoking; patient today denies smoking as well as drug use. [id number] asthma exacerbation smoke exposure Disposition Doctor Will See Patient In The: Office Counseled Patient/Family Regarding: Studies Performed, Diagnosis - Disposition Disposition: HOME/ ROUTINE Disposition Time: 22:36 Condition: GOOD Additional Instructions: Duoneb INhaled treatments with 2 ampules every 3-4 hours as needed Prednisone 40 mg daily for 5 days total next dose tomorrow before noon follow-up w your PMD as needed. Prescriptions: Albuterol/Ipratropium [Duoneb 3 MG/3 Ml-0.5 MG/3 Ml 3 Ml] 6 ml IH Q4H PRN #100 neb PRN Reason: asthma RX: Prednisone [Deltasone] 40 mg PO DAILY #8 tablet Instructions: Asthma in Adults Forms: [facility] (South African) - Clinical Impression Clinical Impression: Exacerbation of asthma - Scribe Statement The provider has reviewed the documentation as recorded by the Truman Arroyo Provider Attestation: All medical record entries made by the Truman were at my direction and personally dictated by me. I have reviewed the chart and agree that the record accurately reflects my personal performance of the history, physical exam, medical decision making, and the department course for this patient. I have also personally directed, reviewed, and agree with the discharge instructions and disposition.
[2018-05-12] MEDS ORDERED: Magnesium Sulfate 1 gm in D5W 1 GM/100 ML BAG IV ONE (21:27)
[2018-05-12] MEDS ORDERED: Magnesium Sulfate 1 gm in D5W 2 GM/200 ML BAG IVPB ONE (21:35)
[2018-05-12] MEDS ORDERED: Albuterol-Ipratrop 3 mg / 0.5 (3 ml) UD ONE (21:35)
[2018-05-12] MEDS ORDERED: Albuterol 0.083% Inhal Sol (2.5 mg/3 mL) UD ONE (22:16)
[2018-05-12 22:36] VITALS: O2SAT 92
[2018-05-12 22:40] VITALS: BP 119/64; PULSE 112; RESP 20
== END 2018-05-12 22:48 | disposition home or self-care (01) ==
LOC: C.ER 20:53
DX: J45.901 Unspecified asthma with (acute) exacerbation (principal)
CPT/HCPCS: 94640; 96374; 99285; J2930; J3475